=== PATIENT | male | born 1980 | race Hispanic/Latino ===

== ENCOUNTER 2024-11-16 10:04 | Emergency (ER) | payer BC, SELFPAY ==
[2024-11-16 10:09] VITALS: BP 169/104
--- NOTE | 2024-11-16 10:56 | ED.GENMED ---
History of Present Illness
General
Chief Complaint: Cough
Time Seen by Provider: 11/16/24 10:29
History of Present Illness
History of Present Illness:
44-year-old male without significant past medical history presenting for persistent cough. Patient reports cough for several weeks, mostly nonproductive. At onset of cough, went to urgent care, got a Z-Kannan and prednisone. Had interval improvement
of symptoms. 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 [place] that cough worsened. Went again to urgent care and was prescribed a cough medication. Has an upcoming vacation, was concern for symptoms so
wanted reassessment. Denies fever. Reports some generalized muscle aches. Denies any present chest pain. Does note sick contacts, partner with similar symptoms. Has also intermittently been using an inhaler. Denies additional acute medical
complaints
Phy Exam
Physical Exam
Physical Exam:
General: Well-appearing, no clinical signs of dehydration, nontoxic and in no acute distress
HEENT: protecting airway
Neck: appears supple
CV: Normal heart rate, regular rhythm
Resp: No accessory muscle use, no increased work of breathing, lungs clear to auscultation bilaterally
Abd: No distention
Extremities: No deformities, no swelling
Neuro: alert, no focal neurologic deficit
: deferred
Rectal: deferred
Psych: Normal affect
Skin: Intact
Course
Orders/Labs/Results
Orders:
Orders
11/16/24 10:10
Chest [CR Chest - 2 Views ] Urgent
Comment:
Reason For Exam: cough
11/16/24 10:12
COVID-19 Antigen Urgent
Source: Nasal Swab
Influenza A+B Rapid Molecular Urgent
DANIELLE Source: Nasal Swab
Specimen Description:
Vital Signs
Initial and Last Documented VS:
Initial Vital Signs
Temp Pulse Resp BP Pulse Ox
98.6 F 84 18 169/104 97
11/16/24 10:09 11/16/24 10:09 11/16/24 10:09 11/16/24 10:09 11/16/24 10:09
Last Documented Vital Signs
Temp Pulse Resp BP Pulse Ox
98.6 F 85 18 161/98 95
11/16/24 10:09 11/16/24 11:47 11/16/24 11:47 11/16/24 11:47 11/16/24 11:47
MDM/Problems Addressed
MDM/Problems Addressed:
44-year-old male presenting to the emergency department for persistent cough. Vital signs normal.
On exam, resting comfortably, no acute distress or discomfort. Unremarkable cardiac and pulmonary exam. Lungs clear to auscultation. Given persistent symptoms, ultimately suspect viral bronchitis. Patient without chest pain, or concern for ACS.
No PE risk factors. Will obtain chest x-ray imaging and viral swabs.
12:00 -Chest x-ray without acute cardiopulmonary disease. Viral swabs negative. Continue to suspect viral bronchitis. Will restart patient on a short course of steroids. Encouraged continued use of inhaler. Otherwise stable for discharge.
Return precautions discussed and patient verbalized understanding
*Critical Care Note
Total Time (30-74mins, 75-104mins- exclusive of procedures): Not Applicable
ED Attending Note
-
Portions of this chart may have been created with voice recognition software.� Occasional wrong word or��sound alike� substitutions may have occurred due to the inherent limitations of voice recognition software.
Discharge Plan
Departure
Referrals:
Rosemarie Manning DO [Family Provider] -
Interventions
Interventions:
*Risk Screen - Suicide Last Done: 11/16/24 10:09
*General Assessment Last Done: 11/16/24 10:09
*Neglect/Abuse Screening Last Done: 11/16/24 10:09
ED- Fall Risk Assessment Last Done: 11/16/24 11:24
*ED COVID-19 Vaccine History Last Done: 11/16/24 10:09
ED- Pulmonary Assessment Last Done: 11/16/24 11:55
Discharge Date and Time
Print Language: PUERTO RICAN
[2024-11-16 11:02] LABS: COVID-19 Antigen Negative (Negative)
[2024-11-16 11:47] VITALS: BP 161/98
[2024-11-16 11:57] VITALS: BMI 42.2
== END 2024-11-16 12:26 | disposition home or self-care (01) ==
LOC: EMR 10:04
PROVIDERS: Emergency Medicine; EMERGENCY PHYSICIAN Student in an Organized Health Care Education/Training Program; FAMILY PHYSICIAN Family Medicine
DX: J20.9 Acute bronchitis, unspecified (principal); R05.9 Cough, unspecified; Z11.52 Encounter for screening for COVID-19
CPT/HCPCS: 99284; 71046; 87502; 87811